=== PATIENT | female | born 2000 ===

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

== ENCOUNTER 2018-09-05 14:22 | Inpatient (IN) ==
[2018-09-05] MEDS ORDERED: ONDANSETRON 4 MG/2 ML VIAL IV PRN (14:36)
[2018-09-05] MEDS ORDERED: MEPERIDINE 50 MG/1 ML VIAL IM PRN (14:36)
[2018-09-05] MEDS ORDERED: BUTORPHANOL 2 MG/ML VIAL IV PRN (14:36)
[2018-09-05] MEDS ORDERED: LACTATED RINGERS 250 ML IV ONE (14:36)
[2018-09-05] MEDS ORDERED: DINOPROSTONE VAG GEL 10 MG SYRINGE VAG ONE (14:37)
[2018-09-05] MEDS ORDERED: LACTATED RINGERS 1,000 ML IV SCH ×2 (15:00→19:00)
[2018-09-05 15:05] LABS: Basophils % 0.3 % (0.0-0.8); Eosinophils # 0.1 10*3/uL (0.0-0.87); Eosinophils % 1.5 % (0.00-10.9); Hematocrit 36.7 VOL% (35.7-47.0); Hemoglobin 11.7 GM/DL (12.0-16.0); Immature Granulocytes % 0.6 %; Immature Granulocytes Absolute 0.04 #; Lymphocytes # 1.3 10*3/uL (1.4-4.0); Lymphocytes % 18.4 % (21.3-54.2); Mean Corpuscular HGB Conc 31.9 GM/DL (32-36); Mean Corpuscular Volume 87.6 FL (87-102); Mean Platelet Volume 9.4 FL (9.6-12.0); Monocytes % 10.3 % (1.7-12.7); Neutrophils % 68.9 % (38.7-73.9); Platelet Count 215 T/CUMM (130-400); Red Blood Count 4.19 MC/CUMM (3.8-5.5); Red Cell Distribution Width 15.9 % (9.3-17.3); White Blood Count 7.2 T/CUMM (4-12)
[2018-09-05] MEDS ORDERED: FAMOTIDINE 20 MG/2 ML VIAL IV ONE (18:40)
[2018-09-05] MEDS ORDERED: PROMETHAZINE 25 MG/1 ML VIAL IM ONE (18:40)
[2018-09-05] MEDS ORDERED: diphenhydrAMINE 50 MG/1 ML VIAL IV PRN (18:40)
[2018-09-05] MEDS ORDERED: hydrOXYzine HCL 25 MG/1 ML VIAL IM PRN (18:40)
[2018-09-05] MEDS ORDERED: ePHEDrine 50 MG/ML AMP IV PRN (18:40)
[2018-09-05] MEDS ORDERED: NALOXONE 0.4 MG/ML VIAL IV PRN (18:40)
[2018-09-05] MEDS ORDERED: LACTATED RINGERS 250 ML IV PRN (18:40)
[2018-09-05] MEDS ORDERED: CITRIC ACID/SODIUM CITRATE 30 ML UDCUP PO ONE (18:40)
[2018-09-05] MEDS ORDERED: fentaNYL 2 MCG/ROPIV 0.2% EPID 100 ML EPIDURAL SCH (19:00)
[2018-09-06] MEDS ORDERED: TRANEXAMIC ACID 1,000 MG/10 ML VIAL ONE (00:52)
[2018-09-06] MEDS ORDERED: OXYTOCIN/LR 0 UNIT/0 ML BAG IV ONE (00:52)
[2018-09-06] MEDS ORDERED: miSOPROStol 200 MCG TABLET ONE (00:52)
[2018-09-06] MEDS ORDERED: METHYLERGONOVINE 0.2 MG/1 ML AMP ONE (00:52)
[2018-09-06] MEDS ORDERED: CITRIC ACID/SODIUM CITRATE 30 ML UDCUP ONE (00:53)
[2018-09-06] MEDS ORDERED: CARBOPROST TROMETHAMINE 250 MCG/ML AMP IM ONE (00:53)
[2018-09-06] MEDS: IBUPROFEN 800 MG TABLET PO PRN (06:53)
[2018-09-06] MEDS: DOCUSATE SODIUM 100 MG CAPSULE PO SCH ×2 (09:55→21:47)
[2018-09-06] MEDS ORDERED: LANOLIN 50% CREAM 0.3 OZ TUBE TOP PRN (19:15)
[2018-09-07] MEDS: IBUPROFEN 800 MG TABLET PO PRN (04:25)
[2018-09-07 05:47] LABS: Basophils % 0.2 % (0.0-0.8); Eosinophils # 0.3 10*3/uL (0.0-0.87); Hematocrit 27.3 VOL% (35.7-47.0); Hemoglobin 8.8 GM/DL (12.0-16.0); Immature Granulocytes % 0.9 %; Immature Granulocytes Absolute 0.08 #; Lymphocytes # 2.5 10*3/uL (1.4-4.0); Lymphocytes % 27.2 % (21.3-54.2); Mean Corpuscular HGB Conc 32.2 GM/DL (32-36); Mean Corpuscular Volume 86.7 FL (87-102); Mean Platelet Volume 9.7 FL (9.6-12.0); Monocytes % 7.4 % (1.7-12.7); Neutrophils % 61.3 % (38.7-73.9); Platelet Count 169 T/CUMM (130-400); Red Blood Count 3.15 MC/CUMM (3.8-5.5); Red Cell Distribution Width 16.2 % (9.3-17.3)
[2018-09-07] MEDS ORDERED: FERROUS SULFATE 325 MG TABLET PO SCH (09:00)
[2018-09-07] MEDS: DOCUSATE SODIUM 100 MG CAPSULE PO SCH (09:01)
[2018-09-07 09:31] VITALS: BP 113/56
== END 2018-09-07 15:40 | disposition home or self-care (01) | DRG 560 ==
LOC: N.LDOUT 14:22 → N.LD 14:25 → N.OB 09-06 04:08
PROVIDERS: ADMIT Obstetrics & Gynecology; ATTEND Obstetrics & Gynecology